=== PATIENT | female | born 1970 | race African-American/Black ===

== ENCOUNTER 2017-12-07 16:13 | Emergency (ER) | payer SELFPAY, OTHER ==
--- NOTE | 2017-12-07 16:58 | RAD ---
CHEST 2 VIEWS: Date: 12/07/17 HISTORY: Cough. COMPARISON: 08/11/16. FINDINGS: Cardiac silhouette and pulmonary vasculature are unremarkable. Mediastinum is midline. There is no co nfluent air space consolidation, pneumothorax, or pleural fluid apparent. IMPRESSION: No active cardiopulmonary abnormalities are demonstrated. POS: [facility]
== END 2017-12-07 18:59 | disposition home or self-care (01) ==
LOC: ERS 16:13
DX: J20.9 Acute bronchitis, unspecified (principal); G89.29 Other chronic pain; I10 Essential (primary) hypertension; E66.9 Obesity, unspecified; G47.30 Sleep apnea, unspecified; F20.9 Schizophrenia, unspecified; F32.9 Major depressive disorder, single episode, unspecified; F43.10 Post-traumatic stress disorder, unspecified; F17.210 Nicotine dependence, cigarettes, uncomplicated; G43.909 Migraine, unspecified, not intractable, without status migrainosus
CPT/HCPCS: 71046

== ENCOUNTER 2018-05-24 14:06 | Emergency (ER) | payer OTHER, SELFPAY ==
[2018-05-24 14:59] LABS: Bilirubin Negative (Negative); Blood, Urine Negative (Negative); Clarity CLEAR (Clear); Glucose, Urine (Dipstick) Negative (Negative); Leukocyte Negative (Negative); Nitrite Negative (Negative); Protein, Urine (Dipstick) Negative (Neg-Trace); Specific Gravity, Urine 1.029 (1.002-1.036); pH, Urine 5.5 (5.0-9.0)
[2018-05-24 16:35] LABS: Pregnancy Test - Urine (BHCG) Negative (Negative); Pregu Control Background? CLEAR/WHITE (CLR/WHITE); Pregu Control Bar Appear? YES (CONTROL BAR); Specific Gravity 1.029 (1.002-1.036)
--- NOTE | 2018-05-24 17:08 | RAD ---
LUMBAR SPINE THREE VIEWS: HISTORY: Lower back pain. COMPARISON: Lumbar spine MRI from 2016. FINDINGS: There is no acute fracture or malalignment. There is grade 1 L3/L4 anterolisthesis, approximately 5 mm. There is mild narrowing at the L3-L4 disk space. There is advanced disk arthropathy at this lev el. Small phleboliths in the pelvis. IMPRESSION: Advanced degenerative facet changes at L3-L4 with subsequent grade 1 anterolisthesis. POS: [facility]
--- NOTE | 2018-05-24 17:09 | RAD ---
LEFT WRIST THREE VIEWS: HISTORY: Pain. COMPARISON: None. FINDINGS: No fracture. No malalignment. There are advanced degenerative changes of the thumb carpometacarpal joint with some dorsal subluxati on and some chronic ossification along the ligaments. IMPRESSION: 1. No acute fracture or malalignment. 2. Advanced degenerative changes of the thumb. POS: [facility]
[2018-05-24] MEDS ORDERED: Ketorolac Tromethamine 30 MG/ML VIAL ONE (18:13)
[2018-05-24 19:10] LABS: #Basophils 0.1 thou/uL (0.0-0.2); #Eosinphils 0.3 thou/uL (0.0-0.7); #Monocytes 0.7 thou/uL (0.11-0.59); #Neutrophils 6.8 thou/uL (1.40-6.50); %Basophils 0.8 % (0.0-1.0); %Eosinophils 3.1 % (0.0-10.0); %Lymphocytes 27.7 % (21.0-51.0); %Monocytes 6.2 % (0.0-10.0); %Neutrophils 62.2 % (42.0-75.0); Hemoglobin 13.1 g/dL (12.0-16.0); Mean Corpuscular HGB CONC 33.7 g/dL (32.0-36.0); Mean Platelet Volume 7.8 fL (7.4-10.4); Platelet Count 248 thou/uL (130-400); RBC Distribution Width 13.6 % (11.5-14.5); Red Blood Cell (RBC) Count 4.37 mill/uL (4.20-5.40); White Blood Cell (WBC) Count 10.9 thou/uL (4.8-10.8)
[2018-05-24 19:40] LABS: ALT (SGPT) 11 U/L (8-55); AST (SGOT) 17 U/L (5-34); Albumin 4.2 g/dL (3.5-5.0); Alkaline Phosphatase 96 U/L (40-150); Anion Gap 13 mmol/L (10-20); BUN (Urea Nitrogen) 12 mg/dL (7.0-18.7); Bilirubin, Total 0.7 mg/dL (0.2-1.2); CRP (Inflammatory) Less than 0.50 mg/dL (= or < 0.5); Calc. Creatinine Clearance 0 mL/min (70-130); Calcium 9.8 mg/dL (7.8-10.44); Carbon Dioxide 26 mmol/L (22-29); Chloride 107 mmol/L (98-107); Estimated GFR-MDRD Greater than 90; Globulin 3.1 g/dL (2.4-3.5); Glucose 121 mg/dL (70-105); Potassium 4.3 mmol/L (3.5-5.1); Protein, Total 7.3 g/dL (6.0-8.3); Sodium 142 mmol/L (136-145)
== END 2018-05-24 20:50 | disposition home or self-care (01) ==
LOC: ERS 14:06
DX: S63.502A Unspecified sprain of left wrist, initial encounter (principal); M54.5 Low back pain; I10 Essential (primary) hypertension; E66.9 Obesity, unspecified; J45.909 Unspecified asthma, uncomplicated; G47.30 Sleep apnea, unspecified; G43.909 Migraine, unspecified, not intractable, without status migrainosus; F32.9 Major depressive disorder, single episode, unspecified; F43.10 Post-traumatic stress disorder, unspecified; F17.210 Nicotine dependence, cigarettes, uncomplicated; X58.XXXA Exposure to other specified factors, initial encounter
CPT/HCPCS: 36415; 36416; 72100; 80053; 81003; 81025; 85025; 85652; 86140; 96372; J1885

== ENCOUNTER 2018-06-16 23:14 | Inpatient (IN) | payer SELFPAY ==
[2018-06-17 00:23] LABS: #Eosinphils 0.1 thou/uL (0.0-0.7); #Lymphocytes 1.4 thou/uL (1.20-3.40); #Monocytes 0.6 thou/uL (0.11-0.59); #Neutrophils 8.7 thou/uL (1.40-6.50); %Basophils 0.3 % (0.0-1.0); %Eosinophils 0.7 % (0.0-10.0); %Lymphocytes 13.3 % (21.0-51.0); %Monocytes 5.6 % (0.0-10.0); Hemoglobin 13.2 g/dL (12.0-16.0); Mean Corpuscular HGB CONC 32.6 g/dL (32.0-36.0); Mean Corpuscular Volume 89.1 fL (78.0-98.0); Mean Platelet Volume 7.9 fL (7.4-10.4); Platelet Count 270 thou/uL (130-400); RBC Distribution Width 13.4 % (11.5-14.5); Red Blood Cell (RBC) Count 4.55 mill/uL (4.20-5.40); White Blood Cell (WBC) Count 10.8 thou/uL (4.8-10.8)
[2018-06-17 00:36] LABS: Bilirubin Negative (Negative); Blood, Urine Negative (Negative); Clarity CLEAR (Clear); Glucose, Urine (Dipstick) Negative (Negative); Leukocyte Negative (Negative); Nitrite Negative (Negative); Protein, Urine (Dipstick) Negative (Neg-Trace); Specific Gravity, Urine 1.024 (1.002-1.036); pH, Urine 7.5 (5.0-9.0)
[2018-06-17 00:43] LABS: ALT (SGPT) 185 U/L (8-55); AST (SGOT) 384 U/L (5-34); Albumin 4.1 g/dL (3.5-5.0); Alkaline Phosphatase 103 U/L (40-150); Anion Gap 13 mmol/L (10-20); BUN (Urea Nitrogen) 16 mg/dL (7.0-18.7); Bilirubin, Total 1.8 mg/dL (0.2-1.2); CK (CPK) 85 U/L (29-168); Calc. Creatinine Clearance 0 mL/min (70-130); Calcium 9.5 mg/dL (7.8-10.44); Carbon Dioxide 27 mmol/L (22-29); Chloride 103 mmol/L (98-107); Estimated GFR-MDRD 89; Globulin 3.1 g/dL (2.4-3.5); Glucose 122 mg/dL (70-105); Lipase 20 U/L (8-78); Potassium 3.7 mmol/L (3.5-5.1); Protein, Total 7.2 g/dL (6.0-8.3); Sodium 139 mmol/L (136-145)
[2018-06-17] MEDS ORDERED: Ondansetron ODT 4 MG TAB SL PRN (04:24)
[2018-06-17 05:00] VITALS: BMI 49.8
[2018-06-17] MEDS: Sodium Chloride 0.9% 1,000 ML IV SCH ×4 (06:17→22:04)
[2018-06-17] MEDS: Ondansetron HCl/PF 4 MG/2 ML Vial IVP PRN ×2 (06:18→15:51)
--- NOTE | 2018-06-17 07:00 | ULT ---
RIGHT UPPER QUADRANT ULTRASOUND: Date: 06/16/18 HISTORY: Abdominal pain. Nausea and vomiting. TECHNIQUE: Multiple longitudinal and transverse images of the right upper quadrant of the abdomen obtained using a multihertz curvilinear transducer. Real-time and color flow images obtained. FINDINGS: Images demonstrate some hepatomegaly, with the liver measuring 19.0 cm in the mid clavicular line. The gallbladder is unremarkable. No evidence of gallstones seen. Gallbladder wall is of normal thickn ess, measuring 2.0 mm. The common bile duct is of normal size, measuring 5.4 mm. No evidence of intrahepatic biliary dilatat ion is seen. The visualized portions of the pancreas are unremarkable. Right kidney is unremarkable, pole to pole measurement measures 11.9 cm. No evidence of hydronephrosi s seen. IMPRESSION: Unremarkable right upper quadrant ultrasound. POS: [facility]
--- NOTE | 2018-06-17 08:46 | CT ---
PRELIMINARY REPORT/[facility]/EMERGENCY AFTER HOURS PROCEDURE: EXAM: CT Abdomen and Pelvis With Intravenous Contrast CLINICAL HISTORY: 48 years old, female; Pain; Abdominal pain; Flank; Right upper quadrant (ruq); Patient HX: 48f presen ts with ruq pain x 2 days. Patient reports pain sometimes can be reproduced, but can not distinguish if it is starting in her back and radiating forward. Reports she has had similar pain in the past. Denies fever and chills. Does reports nausea. TECHNIQUE: Axial computed tomography images of the abdomen and pelvis with intravenous contrast. Coronal reforma tted images were created and reviewed. COMPARISON: No relevant prior studies available. FINDINGS: Lung bases: Unremarkable. No mass. No consolidation. ABDOMEN: Liver: Unremarkable. No mass. Gallbladder and bile ducts: Slight dilatation of the common bile duct measuring up to 8 mm. No calcif ied stones. No intrahepatic ductal dilation. Pancreas: Unremarkable. No mass. No ductal dilation. Spleen: No splenomegaly. Adrenals: Unremarkable. No mass. Kidneys and ureters: Unremarkable. No solid mass. No hydronephrosis. Stomach and bowel: Unremarkable. No obstruction. No mucosal thickening. PELVIS: Appendix: No findings to suggest acute appendicitis. Bladder: Unremarkable. No mass. Reproductive: Unremarkable as visualized. ABDOMEN and PELVIS: Intraperitoneal space: Unremarkable. No free air. No significant fluid collection. Bones/joints: No acute fracture. No dislocation. Soft tissues: Unremarkable. Vasculature: Unremarkable. No abdominal aortic aneurysm. Lymph nodes: Unremarkable. No enlarged lymph nodes. IMPRESSION: Slight dilatation of the common bile duct, otherwise unremarkable exam Thank you for allowing us to participate in the care of your patient. Dictated and Authenticated by: Scott Hines MD 06/17/2018 1:53 AM Central Time ([place] & [place]) FINAL REPORT CT ABDOMEN AND PELVIS WITH CONTRAST: FINDINGS/IMPRESSION: Report is in agreement with the above-provided preliminary interpretation. There is distention of the gallbladder and extrahepatic biliary ductal system. This could be further assessed with gallbladder ultrasound as well as biliary laboratory values and clinical assessment. POS: [facility]
[2018-06-17] MEDS: Morphine 4 MG/ML VIAL SLOW IVP PRN ×2 (09:36→14:00)
[2018-06-17] MEDS ORDERED: ISOVUE-370 76%-LOCM 1 ML ONE (11:08)
--- NOTE | 2018-06-17 11:54 | HP ---
CHIEF COMPLAINT: Abdominal pain. HISTORY OF PRESENT ILLNESS: History is provided by the patient who has had some pain medications. She can describe she has some chronic low back pain. She believes that she was having some exacerbation of that pain the day before yesterday and yesterday became more severe. She also had some abdominal pain primarily in the epigastric area associated with some nausea. She had no vomiting. She reports that it was initially intermittent, but it is now constant. Reports that it is a 10/10 now. Still feels that in her lower back. Also, feels it in her upper back and shoulder blade area. States she has had this type of pain before, but at this time it feels sharper and she states that it feels like her spine is pulling apart. Describes it as a "cutting pain." She has had no change in her bowel habits. She does believe that she had some fevers and chills yesterday. No change in symptoms, better or worse, with BM, position or activity. REVIEW OF SYSTEMS: Notable for some numbness and tingling in her feet. Occasionally, she wakes up at night, feeling like she is choking and a little short of breath, but believes this is related to sleep apnea. PAST MEDICAL HISTORY: 1. Obstructive sleep apnea. The patient reports she was diagnosed with this and then subsequently lost her job and her insurance and never pursued. She is not currently on any treatment. 2. "Enlarged heart." 3. Hypertension. 4. Sciatica. 5. Chronic pain related to her lower back. PAST SURGICAL HISTORY: Surgery on the right knee meniscus, tonsillectomy/ adenoidectomy, . SOCIAL HISTORY: The patient smokes half a pack of cigarettes per day. She occasionally drinks alcohol. She is single. Denies drug use. Her surrogate decision maker would be her sister, Narcisa. She is a [employer]. FAMILY HISTORY: Father's history is unknown. Her mother had breast cancer. MEDICATIONS: Lisinopril causes cough. Nitroglycerin causes headache. CURRENT MEDICATIONS: Ibuprofen 800 p.o. t.i.d., hydrochlorothiazide 25 mg p.o. daily, Norvasc 10 mg p.o. daily. PHYSICAL EXAMINATION: VITAL SIGNS: Temperature is 98.4, pulse 74, respirations 18, O2 sat 93%, blood pressure 155/89. GENERAL APPEARANCE: Morbidly obese age appropriate female who does not appear to be in any distress or significant pain. She is conversant. HEENT: PERRL. No OP lesions. NECK: Supple and symmetric. HEART: Regular rate and rhythm without murmurs, gallops or rubs. LUNGS: Clear to auscultation bilaterally with good chest wall expansion and air exchange. ABDOMEN: Soft, nondistended. There is tenderness to palpation in the epigastrium and somewhat in the right upper quadrant, also mildly in the left lower quadrant, but fairly minimal and modestly in the right lower quadrants. She has some guarding in the epigastric area, but no rebound. SKIN: Warm and dry without edema. LABORATORY DATA AND IMAGING DATA: White count 10.8, hemoglobin 13.2, platelets 270. Sodium 139, potassium 3.7, chloride 103, BUN 16, creatinine 0.8, glucose 122, calcium 9.5, AST 384, ALT is 185, albumin 4.1, lipase 20. Urinalysis negative. CT abdomen and pelvis demonstrates slight dilatation of the gallbladder and extrahepatic biliary duct system. Abdominal ultrasound is unremarkable. IMPRESSION AND PLAN: 1. Abdominal pain with elevated liver enzymes and total bilirubin. Etiology is unclear. Her ultrasound was negative, but CT scan was concerning for possible dilatation of the gallbladder and biliary duct. We will repeat her labs now to see if there is any significant change. GI consult pending. The patient remains n.p.o. Given the fact that she has been taking some anti- inflammatory medications and her pain seems to be as much, if not more epigastric then right upper quadrant could be more of a gastritis picture and then cholecystitis would not explain the elevated liver enzymes. This is also complicated by the fact the patient has some chronic pain syndrome related to her back. The patient certainly has the classic scenario for some cholecystitis. 2. Hypertension. Continue amlodipine and hydrochlorothiazide. MTDD
[2018-06-17 13:04] LABS: ALT (SGPT) 498 U/L (8-55); AST (SGOT) 646 U/L (5-34); Alkaline Phosphatase 122 U/L (40-150); Anion Gap 13 mmol/L (10-20); BUN (Urea Nitrogen) 12 mg/dL (7.0-18.7); Bilirubin, Total 1.7 mg/dL (0.2-1.2); Calc. Creatinine Clearance 201 mL/min (70-130); Carbon Dioxide 23 mmol/L (22-29); Chloride 108 mmol/L (98-107); Estimated GFR-MDRD Greater than 90; Globulin 2.8 g/dL (2.4-3.5); Glucose 94 mg/dL (70-105); Protein, Total 6.8 g/dL (6.0-8.3); Sodium 140 mmol/L (136-145)
--- NOTE | 2018-06-17 15:18 | CON ---
DATE OF CONSULTATION: 06/17/2018 GI CONSULTATION NOTE CHIEF COMPLAINT: Abnormal liver tests. HISTORY OF PRESENT ILLNESS: Ms. Hancock is a 48-year-old woman who presented to the emergency room las t night with back pain. ss She complains of a sharp pain that started across her lower back yesterday afternoon. She had nausea with it. She has had some associated left upper quadrant epigastric disc omfort as well; however, this is only mild at this point. She has had no vomiting, but has been naus eated. She has had normal bowel movements for the last couple of days. No blood in the stool soft. She has soft, easy to pass stools. Her weight has been stable. No fever with this. She is noted t o have significantly elevated liver tests during her evaluation and GI was consulted to evaluate that . Her ultrasound of the abdomen showed no stones or biliary dilation. CT scan of the abdomen and pe lvis was unremarkable and the common bile duct measured at 8 mm with that exam. She did not notice a ny change in her pain with eating yesterday. She has had some chronic low back pain for which she ta kes ibuprofen daily. A week ago she saw her primary care doctor and restarted taking her blood press ure medicines again. She started hydrochlorothiazide and amlodipine. She takes ibuprofen 800 mg onc e or twice a day over the last week. Prior to that, she was on [id number] ibuprofen for years. She has had no use of Tylenol. No drug use recently. PAST MEDICAL HISTORY: Obstructive sleep apnea, hypertension, chronic low back pain, obesity. PAST SURGICAL HISTORY: Knee surgery, tonsillectomy, . FAMILY HISTORY: Negative for GI malignancy or liver disease. SOCIAL HISTORY: She smokes half a pack a day of cigarettes. She denies any alcohol use. She did us e cocaine and marijuana in the more distant past. She has never used IV drugs. ALLERGIES: She had a cough with LISINOPRIL. MEDICATIONS: Currently ibuprofen 800 mg up to 3 times a day, hydrochlorothiazide 25 mg daily, amlodi pine 10 mg daily prior to admission. REVIEW OF SYSTEMS: Negative x10 systems reviewed except as stated in the history of present illness. PHYSICAL EXAMINATION: VITAL SIGNS: Temperature 98.1, pulse 68, blood pressure 185/77 ranging to 138/78. GENERAL: She is in no acute distress. She is alert and oriented x3. HEENT: Eyes have no scleral icterus. Oropharynx is clear, without lesions. NECK: No cervical or supraclavicular lymphadenopathy. LUNGS: Clear to auscultation bilaterally. HEART: Regular rate and rhythm without murmur. ABDOMEN: Soft, minimal tenderness in the right and left upper right. Her right upper quadrant is no ntender. Her rest of her abdomen is nontender. Bowel sounds are active. EXTREMITIES: No lower extremity edema. NEUROLOGIC: Cranial nerves are grossly intact. No asterixis. LABORATORY DATA: White blood cell count 10.8, hemoglobin 13.2, platelets 207. The creatinine 0.72, bilirubin is 1.7, down from 1.8 last night, AST is 646 up from 348 last night, ALT 498 from 185. Las t night, alkaline phosphatase is 122 last night. Her alkaline phosphatase was 103, albumin is 4.0, l ipase 20. IMPRESSION: Abnormal liver function test with primarily hepatocellular injury pattern. There are no signs of chronic liver disease by imaging or blood work. She has had no alcohol use and no Tylenol use. She has been using ibuprofen 800 mg up to 3 times per day which could be a potential source for acute liver injury. She has no gallstones in the gallbladder and her bile duct was 5 mm by ultrasou nd and an [address] There is no indication at this point that she has choledocholithiasis. Her al kaline phosphatase is normal and she is nontender to palpation in the right upper quadrant. At this point, we will need to rule out viral hepatitis, rule out autoimmune hepatitis, I will also check lab s for other causes of liver disease. She did recently restart blood pressure medications and ischemic hepatopathy. I think as a creatinine would have to be considered; however, I think this is unlikel y given that she has a normal creatinine and if she had a hypotensive episode enough to cause ischemi c hepatopathy. I would expect a bump in her creatinine as well. RECOMMENDATIONS: 1. Check viral hepatitis screen. 2. Check alpha fetoprotein and iron saturation and smooth muscle antibody, mitochondrial antibody. 3. We will continue to follow the trend of her liver tests and check an INR.
[2018-06-17 15:47] LABS: INR-International Normal Ratio 0.9; Prothrombin Time 12.7 SEC (12.0-14.7)
[2018-06-17 16:01] LABS: Iron 122 ug/dL (50-170); Iron Binding Capacity, Total 270 mcg/dL (265-497)
[2018-06-17 16:20] LABS: Hep B Surf Ag Non-Reactive S/CO (NonReactive); Hep C IgG Ab Non-Reactive (NonReactive); Hep C Index 0.07 S/CO (0-0.79)
[2018-06-17 16:22] LABS: HBCM Index 0.19 S/CO (0-0.79); Hep A IgM AB Non-Reactive (NonReactive); Hep A IgM S/CO 0.08 S/CO (0-0.79); Hepatitis B Core IGM Abs Non-Reactive (NonReactive)
[2018-06-17 17:59] LABS: HBSAB Concentration 14988.44 mIU/mL; Hep B Surf AB Reactive (NonReactive)
[2018-06-17 18:00] LABS: Hep B Core Total Ab Reactive (NonReactive); Hep B Core Total Index 7.27 S/CO (0-0.79)
[2018-06-17 18:05] LABS: Ferritin 250.88 ng/mL (10-291)
[2018-06-18] MEDS: Sodium Chloride 0.9% 1,000 ML IV SCH ×3 (00:03→15:26)
[2018-06-18] MEDS: HYDROcodone/Acetaminophen 5/325 mg Tablet PO PRN ×2 (00:03→22:12)
[2018-06-18] MEDS: Ondansetron HCl/PF 4 MG/2 ML Vial IVP PRN ×2 (08:10→14:12)
[2018-06-18 14:53] LABS: ANA Symphony (Qualitative) Negative (Negative); ANA Symphony (Quantitative) Less than 0.07 Ratio (<0.7 Negative); EliA Vaculitis New Method **** NEW METHOD ****; Mitochondrial Ab Less than 0.5 U/mL (<4 Negative); dsDNA IgG Antibody 3.6 IU/mL (<10 Negative)
--- NOTE | 2018-06-18 15:05 | PDOC.PN ---
- Subjective Encounter Start Date: 06/18/18 Encounter Start Time: 12:15 Subjective: c/o lower back pain -: no trouble passing urine or cough -: no fever - Objective Resuscitation Status: Resuscitation Status FULL:Full Resuscitation MAR Reviewed: Yes Vital Signs & Weight: Vital Signs (12 hours) Temp Pulse Resp BP Pulse Ox 06/18/18 07:26 98.6 F 72 18 160/98 H 98 Weight Weight 299 lb 13.259 oz I&O: 06/17/18 06/18/18 06/19/18 06:59 06:59 06:59 Intake Total 1849 1939 Balance 1849 1939 Result Diagrams: 06/17/18 00:12 06/17/18 12:28 Phys Exam - Physical Examination HEENT: PERRLA, moist MMs Neck: no JVD, supple Respiratory: no wheezing, no rales Cardiovascular: RRR, no significant murmur Gastrointestinal: soft, non-tender, no distention, positive bowel sounds Musculoskeletal: no edema, pulses present severe lumbosacral paraspinal area tenderness, no mass felt Neurological: non-focal, moves all 4 limbs Psychiatric: normal affect, A&O x 3 Dx/Plan (1) Elevated LFTs Code(s): R94.5 - ABNORMAL RESULTS OF LIVER FUNCTION STUDIES Status: Acute (2) Asthma Code(s): J45.909 - UNSPECIFIED ASTHMA, UNCOMPLICATED Status: Chronic Qualifiers: Asthma severity: unspecified severity (3) Hypertension Code(s): I10 - ESSENTIAL (PRIMARY) HYPERTENSION Status: Chronic Qualifiers: Hypertension type: essential hypertension Qualified Code(s): I10 - Essential (primary) hypertension (4) Obesity, morbid, BMI 40.0-49.9 Code(s): E66.01 - MORBID (SEVERE) OBESITY DUE TO EXCESS CALORIES Status: Chronic (5) Obstructive sleep apnea Code(s): G47.33 - OBSTRUCTIVE SLEEP APNEA (ADULT) (PEDIATRIC) Status: Chronic (6) Tobacco abuse Code(s): Z72.0 - TOBACCO USE Status: Chronic (7) Back pain Code(s): M54.9 - DORSALGIA, UNSPECIFIED Status: Acute Qualifiers: Back pain location: low back pain Chronicity: unspecified - Plan MRI of thoracic and lumbar spine to r/o discitis/epidural abscess, no fever -: hepatic panel today and in am -: change status to inpt, morphine, lidocaine tts -: afp, smooth muscle and antimito ab levels pending -: lfts are trending up, ?related to inf * . Review of Systems - Medications/Allergies Allergies/Adverse Reactions: Allergies Allergy/AdvReac Type Severity Reaction Status Date / Time lisinopril AdvReac Intermediate Verified 08/11/16 06:24 Medications: Current Medications Hydrocodone Bitart/Acetaminophen ([place] 5/325) 1 tab PO Q4H PRN PRN Reason: Moderate Pain (4-6) Last Admin: 06/18/18 00:03 Dose: 1 tab Sodium Chloride (Normal Saline 0.9%) 1,000 mls @ 125 mls/hr IV .Q8H MARY Stop: 06/19/18 14:16 Last Admin: 06/18/18 08:05 Dose: 1,000 mls Lidocaine (Lidoderm 5% Patch) 2 patch TD DAILY MARY Morphine Sulfate (Morphine) 2 mg SLOW IVP Q2H PRN PRN Reason: Mild-Moderate Pain (1-5) Stop: 06/19/18 14:16 Last Admin: 06/17/18 06:18 Dose: 2 mg Morphine Sulfate (Morphine) 4 mg SLOW IVP Q2H PRN PRN Reason: Moderate to Severe Pain (6-10) Stop: 06/19/18 14:16 Last Admin: 06/17/18 14:00 Dose: 4 mg Morphine Sulfate (Morphine) 2 mg SLOW IVP Q4H PRN PRN Reason: Chest Pain/BP Elevations Ondansetron HCl (Zofran) 4 mg IVP Q6H PRN PRN Reason: Nausea/Vomiting Stop: 06/19/18 14:16 Last Admin: 06/18/18 14:12 Dose: 4 mg Ondansetron HCl (Zofran Odt) 4 mg SL Q6H PRN PRN Reason: Nausea/Vomiting Stop: 06/19/18 14:16 Sodium Chloride (Flush - Normal Saline) 10 ml IVF Q12HR MARY Last Admin: 06/18/18 08:13 Dose: Not Given Sodium Chloride (Flush - Normal Saline) 10 ml IVF PRN PRN PRN Reason: Saline Flush
[2018-06-18] MEDS: Lidocaine 5% Patch TD SCH (16:12)
[2018-06-18 16:47] LABS: #Basophils 0.1 thou/uL (0.0-0.2); #Eosinphils 0.4 thou/uL (0.0-0.7); #Lymphocytes 2.7 thou/uL (1.20-3.40); #Monocytes 0.8 thou/uL (0.11-0.59); #Neutrophils 5.3 thou/uL (1.40-6.50); %Basophils 1.1 % (0.0-1.0); %Eosinophils 4.2 % (0.0-10.0); %Lymphocytes 29.3 % (21.0-51.0); %Monocytes 8.1 % (0.0-10.0); %Neutrophils 57.4 % (42.0-75.0); Hemoglobin 12.9 g/dL (12.0-16.0); Mean Corpuscular HGB CONC 31.5 g/dL (32.0-36.0); Mean Corpuscular Hemoglobin 28.6 pg (27.0-31.0); Mean Corpuscular Volume 90.8 fL (78.0-98.0); Mean Platelet Volume 8.1 fL (7.4-10.4); Platelet Count 265 thou/uL (130-400); RBC Distribution Width 13.5 % (11.5-14.5); Red Blood Cell (RBC) Count 4.52 mill/uL (4.20-5.40); White Blood Cell (WBC) Count 9.3 thou/uL (4.8-10.8)
--- NOTE | 2018-06-18 16:51 | PRG ---
DATE OF SERVICE: 06/18/2018 GASTROENTEROLOGY PROGRESS NOTE SUBJECTIVE: Mr. Hancock has some abdominal discomfort. She does have chronic low back pain in the mid lower back. She is tolerating her diet well. OBJECTIVE: VITAL SIGNS: Temperature 98.6, pulse 72, blood pressure 160/98. GENERAL: She is in no acute distress, awake and alert and oriented x3. LUNGS: Clear to auscultation bilaterally. HEART: Regular rate and rhythm without murmur. ABDOMEN: Soft, nontender, nondistended. Bowel sounds are present. EXTREMITIES: No lower extremity edema. LABORATORY DATA: Her iron saturation is not elevated. Her hepatitis B surface antibody and core tot al antibody are positive indicating a past infection. She does not have chronic active infection. H epatitis A and hepatitis B were negative. Additional labs looking for other causes of liver disease are pending. IMPRESSION: Abnormal liver function tests with primarily hepatocellular injury pattern. The cause o f this is not known at this point. She had been taking nonsteroidal anti-inflammatory drugs. She re cently started new medications and ischemic hepatopathy is considered as a possibility, however, not thought to be likely since her renal function is normal. Her INR is normal. No obvious signs of chr onic liver disease otherwise. RECOMMENDATIONS: 1. Recheck liver tests. Follow trend. 2. I am awaiting additional blood work that has already been ordered.
[2018-06-18 17:11] LABS: ALT (SGPT) 288 U/L (8-55); AST (SGOT) 160 U/L (5-34); Albumin 3.9 g/dL (3.5-5.0); Alkaline Phosphatase 122 U/L (40-150); Anion Gap 12 mmol/L (10-20); BUN (Urea Nitrogen) 11 mg/dL (7.0-18.7); Bilirubin, Total 0.7 mg/dL (0.2-1.2); Calc. Creatinine Clearance 195 mL/min (70-130); Calcium 9.2 mg/dL (7.8-10.44); Carbon Dioxide 22 mmol/L (22-29); Chloride 107 mmol/L (98-107); Estimated GFR-MDRD Greater than 90; Globulin 2.8 g/dL (2.4-3.5); Glucose 94 mg/dL (70-105); Potassium 4.4 mmol/L (3.5-5.1); Protein, Total 6.7 g/dL (6.0-8.3); Sodium 137 mmol/L (136-145)
[2018-06-19] MEDS: Lidocaine Patch Removal 1 EACH TOP SCH (04:25)
[2018-06-19] MEDS: Sodium Chloride 0.9% 1,000 ML IV SCH ×3 (04:25→23:42)
[2018-06-19 04:57] LABS: ALT (SGPT) 230 U/L (8-55); AST (SGOT) 104 U/L (5-34); Albumin 3.9 g/dL (3.5-5.0); Alkaline Phosphatase 121 U/L (40-150); Anion Gap 14 mmol/L (10-20); BUN (Urea Nitrogen) 12 mg/dL (7.0-18.7); Bilirubin, Total 0.4 mg/dL (0.2-1.2); Calc. Creatinine Clearance 198 mL/min (70-130); Calcium 9.6 mg/dL (7.8-10.44); Carbon Dioxide 24 mmol/L (22-29); Chloride 104 mmol/L (98-107); Estimated GFR-MDRD Greater than 90; Globulin 2.8 g/dL (2.4-3.5); Glucose 100 mg/dL (70-105); Potassium 4.1 mmol/L (3.5-5.1); Protein, Total 6.7 g/dL (6.0-8.3); Sodium 138 mmol/L (136-145)
--- NOTE | 2018-06-19 12:11 | PRG ---
DATE OF SERVICE: 06/19/2018 GASTROENTEROLOGY PROGRESS NOTE SUBJECTIVE: Ms. Hancock has no acute complaints today. No abdominal pain and she is tolerating a kimi d diet. OBJECTIVE: VITAL SIGNS: Temperature 98.4, pulse 72, blood pressure 154/92. GENERAL: She is in no acute distress. She is alert and oriented x3. HEENT: Eyes have no scleral icterus. LUNGS: Clear to auscultation bilaterally. HEART: Regular rate and rhythm. ABDOMEN: Minimal upper abdominal tenderness, without guarding. Bowel sounds are present. EXTREMITIES: No lower extremity edema. LABORATORY DATA: Bilirubin 0.4, AST 104, ALT 230, alkaline phosphatase 121. Mitochondrial antibody was negative. Smooth muscle antibody and alpha 1 antitrypsin levels are pending. IMPRESSION: 1. Abnormal liver function test. 2. Hepatocellular injury pattern. Cause of this is not determined. Abnormal liver tests could have been related to NSAID use; however, I would not think this would be likely. No other source was chace ntified so far. Mild ischemic hepatopathy could be considered. Again, this does not seem likely. V iral hepatitis panel is negative for chronic or acute infection. She has past exposure to hepatitis B infection, but not a chronic infection. Smooth muscle antibody and alpha 1 antitrypsin level and a lpha fetoprotein are pending. She does not have other obvious medications or home medication list th at might have caused this. Again, ultrasound of the abdomen showed a normal common bile duct size an d no stones. RECOMMENDATIONS: 1. Follow up in GI Clinic in 2 weeks to recheck her liver tests. Her transaminases have trended richard n significantly and we will follow the trend of her longer period and await the labs that have alread y been sent. Diet and exercise have been discussed as well. 2. Follow up in GI Clinic in a couple of weeks to recheck her liver tests. Screening colonoscopy co uld be considered at that point and this was discussed with her as well. 3. She is awaiting further evaluation of her back with MRI in the meantime. I will sign off for now . Please call if GI can be of assistance.
--- NOTE | 2018-06-19 14:10 | PDOC.PN ---
- Subjective Encounter Start Date: 06/19/18 Encounter Start Time: 07:30 Subjective: back pain is better this am -: no abd pain -: is eating well - Objective Resuscitation Status: Resuscitation Status FULL:Full Resuscitation MAR Reviewed: Yes Vital Signs & Weight: Vital Signs (12 hours) Temp Pulse Resp BP Pulse Ox 06/19/18 08:00 94 L 06/19/18 07:19 98.4 F 72 18 154/92 H 94 L Weight Weight 299 lb 13.259 oz I&O: 06/18/18 06/19/18 06/20/18 06:59 06:59 06:59 Intake Total 1850 2740 Balance 1850 2740 Result Diagrams: 06/18/18 16:36 06/19/18 03:44 Phys Exam - Physical Examination HEENT: PERRLA, moist MMs Neck: no JVD, supple Respiratory: no wheezing, no rales Cardiovascular: RRR, no significant murmur Gastrointestinal: soft, non-tender, positive bowel sounds Musculoskeletal: no edema, pulses present Neurological: non-focal, moves all 4 limbs Psychiatric: normal affect, A&O x 3 Dx/Plan (1) Elevated LFTs Code(s): R94.5 - ABNORMAL RESULTS OF LIVER FUNCTION STUDIES Status: Acute (2) Asthma Code(s): J45.909 - UNSPECIFIED ASTHMA, UNCOMPLICATED Status: Chronic Qualifiers: Asthma severity: unspecified severity (3) Hypertension Code(s): I10 - ESSENTIAL (PRIMARY) HYPERTENSION Status: Chronic Qualifiers: Hypertension type: essential hypertension Qualified Code(s): I10 - Essential (primary) hypertension (4) Obesity, morbid, BMI 40.0-49.9 Code(s): E66.01 - MORBID (SEVERE) OBESITY DUE TO EXCESS CALORIES Status: Chronic (5) Obstructive sleep apnea Code(s): G47.33 - OBSTRUCTIVE SLEEP APNEA (ADULT) (PEDIATRIC) Status: Chronic (6) Tobacco abuse Code(s): Z72.0 - TOBACCO USE Status: Chronic (7) Back pain Code(s): M54.9 - DORSALGIA, UNSPECIFIED Status: Acute Qualifiers: Back pain location: low back pain Chronicity: unspecified - Plan MRI for spine today to r/o discitis/epidural abscess -: lft's are trending down -: to ambulate as tolerated -: lidocaine tts is helping her -: dc plan home if MRI is normal * . Review of Systems - Medications/Allergies Allergies/Adverse Reactions: Allergies Allergy/AdvReac Type Severity Reaction Status Date / Time lisinopril AdvReac Intermediate Verified 08/11/16 06:24 Medications: Current Medications Hydrocodone Bitart/Acetaminophen ([place] 5/325) 1 tab PO Q4H PRN PRN Reason: Moderate Pain (4-6) Last Admin: 06/18/18 22:12 Dose: 1 tab Lidocaine (Lidoderm 5% Patch) 2 patch TD 1600 MARY Last Admin: 06/18/18 16:12 Dose: 2 patch Miscellaneous Medication (Lidocaine Patch Removal) 2 each TOP 0400 MARY Last Admin: 06/19/18 04:25 Dose: 2 each Morphine Sulfate (Morphine) 2 mg SLOW IVP Q2H PRN PRN Reason: Mild-Moderate Pain (1-5) Stop: 06/19/18 14:16 Last Admin: 06/17/18 06:18 Dose: 2 mg Morphine Sulfate (Morphine) 4 mg SLOW IVP Q2H PRN PRN Reason: Moderate to Severe Pain (6-10) Stop: 06/19/18 14:16 Last Admin: 06/17/18 14:00 Dose: 4 mg Morphine Sulfate (Morphine) 2 mg SLOW IVP Q4H PRN PRN Reason: Chest Pain/BP Elevations Ondansetron HCl (Zofran) 4 mg IVP Q6H PRN PRN Reason: Nausea/Vomiting Stop: 06/19/18 14:16 Last Admin: 06/18/18 14:12 Dose: 4 mg Ondansetron HCl (Zofran Odt) 4 mg SL Q6H PRN PRN Reason: Nausea/Vomiting Stop: 06/19/18 14:16 Sodium Chloride (Flush - Normal Saline) 10 ml IVF Q12HR MARY Last Admin: 06/19/18 09:49 Dose: Not Given Sodium Chloride (Flush - Normal Saline) 10 ml IVF PRN PRN PRN Reason: Saline Flush
[2018-06-19] MEDS ORDERED: Ondansetron HCl/PF 4 MG/2 ML Vial IVP PRN (15:44)
[2018-06-19] MEDS ORDERED: Ondansetron ODT 4 MG TAB SL PRN (15:44)
[2018-06-19] MEDS: Lidocaine 5% Patch TD SCH (15:58)
--- NOTE | 2018-06-19 16:12 | MRI ---
MRI OF LUMBAR SPINE PERFORMED WITH AND WITHOUT CONTRAST ENHANCEMENT: 06/19/18 HISTORY: Patient complaining of upper and lower back pain. Evaluation for osteomyelitis. The vertebral bodies maintain normal height. There is disc narrowing at L3-4 with disc desiccation changes. There is also disc desiccation changes at the L5-S1 level. No significant disc narrowing seen at this level. No sig nificant periaortic adenopathy and the visualized portions of the kidneys appear unremarkable. No ramon row edema changes seen and no evidence of any abnormal contrast enhancement to suggest osteomyelitis or discitis. T12-L1: Unremarkable. L1-2: Unremarkable. L2-3: Degenerative facet and ligamentous hypertrophic changes without significant canal or foraminal stenosis. L3-4: Marked degenerative facet changes are present at this level. There is fluid within the facet carol ints. There is a moderate degree of canal narrowing. No significant foraminal stenosis. L4-5: Degenerative facet changes without canal or foraminal narrowing. L5-S1: No signs of any significant disc bulge, canal or foraminal stenosis. There is a slight disc bu lge and what may be a tiny left paracentral disc protrusion. It does not appear to impress on the the dipti sac or nerve roots. IMPRESSION: 1. No signs of osteomyelitis or discitis. 2. Mild to moderate stenosis at L3-4. Other findings as noted above. POS: MAURO
--- NOTE | 2018-06-19 16:15 | MRI ---
MRI OF THE THORACIC SPINE PERFORMED WITH AND WITHOUT CONTRAST ENHANCEMENT: 06/19/18 HISTORY: Patient with upper and lower back pain. Evaluation for osteomyelitis. COMPARISON: 08/10/16 study. The vertebral bodies maintain normal height. There is some mild degenerative changes of the spine. Th ere is no abnormal marrow signal change within the vertebral bodies. There are disc desiccation curiel es at some of the disc levels but no signs of any discitis. On postcontrast images, I do not see any abnormal enhancement. The cord has normal signal. No epidural process is seen. No paravertebral mass. No signs of any signi ficant canal or foraminal stenosis. IMPRESSION: No evidence for discitis or osteomyelitis of the thoracic spine. POS: MAURO
[2018-06-19] MEDS: HYDROcodone/Acetaminophen 5/325 mg Tablet PO PRN (16:17)
--- NOTE | 2018-06-19 18:24 | EKG ---
Test Reason : Blood Pressure : / mmHG Vent. Rate : 079 BPM Atrial Rate : 079 BPM P-R Int : 184 ms QRS Dur : 100 ms QT Int : 410 ms P-R-T Axes : 063 027 063 degrees QTc Int : 470 ms Normal sinus rhythm Possible Left atrial enlargement Borderline ECG Right atrial enlargement Confirmed by MEAGAN MORALES, EMMA Bhatti ([id number]), editor map EDWINA PLATT ([id number]) on 06/19/2018 6:24:04 PM Referred By: Confirmed By:EMMA RHODES MD
[2018-06-20] MEDS: Lidocaine Patch Removal 1 EACH TOP SCH (03:11)
[2018-06-20 07:55] VITALS: TEMP 97.9
[2018-06-20 13:07] VITALS: BP 167/107
--- NOTE | 2018-06-20 14:43 | PDOC.PN ---
- Subjective Encounter Start Date: 06/20/18 Encounter Start Time: 07:50 Subjective: back pain is better -: no abd pain - Objective Resuscitation Status: Resuscitation Status FULL:Full Resuscitation MAR Reviewed: Yes Vital Signs & Weight: Vital Signs (12 hours) Temp Pulse Resp BP Pulse Ox 06/20/18 13:07 167/107 H 06/20/18 08:00 94 L 06/20/18 07:51 97.9 F 76 16 181/83 H 94 L Weight Weight 299 lb 13.259 oz I&O: 06/19/18 06/20/18 06/21/18 06:59 06:59 06:59 Intake Total 2740 1500 180 Balance 2740 1500 180 Result Diagrams: 06/18/18 16:36 06/19/18 03:44 Phys Exam - Physical Examination HEENT: PERRLA, moist MMs Neck: no JVD, supple Respiratory: no wheezing, no rales Cardiovascular: RRR, no significant murmur Gastrointestinal: soft, non-tender, positive bowel sounds Musculoskeletal: no edema, pulses present Neurological: non-focal, moves all 4 limbs Psychiatric: normal affect, A&O x 3 Dx/Plan (1) Elevated LFTs Code(s): R94.5 - ABNORMAL RESULTS OF LIVER FUNCTION STUDIES Status: Acute Comment: resolving (2) Asthma Code(s): J45.909 - UNSPECIFIED ASTHMA, UNCOMPLICATED Status: Chronic Qualifiers: Asthma severity: unspecified severity (3) Hypertension Code(s): I10 - ESSENTIAL (PRIMARY) HYPERTENSION Status: Chronic Qualifiers: Hypertension type: essential hypertension Qualified Code(s): I10 - Essential (primary) hypertension (4) Obesity, morbid, BMI 40.0-49.9 Code(s): E66.01 - MORBID (SEVERE) OBESITY DUE TO EXCESS CALORIES Status: Chronic (5) Obstructive sleep apnea Code(s): G47.33 - OBSTRUCTIVE SLEEP APNEA (ADULT) (PEDIATRIC) Status: Chronic (6) Tobacco abuse Code(s): Z72.0 - TOBACCO USE Status: Chronic (7) Back pain Code(s): M54.9 - DORSALGIA, UNSPECIFIED Status: Acute Qualifiers: Back pain location: low back pain Chronicity: unspecified - Plan hemostable -: MRI lumbar and thoracic spine were reviewed -: dc pt home * .
--- NOTE | 2018-06-21 15:28 | DIS ---
DATE OF ADMISSION: 06/16/2018. DATE OF DISCHARGE: 06/20/2018 DISCHARGE DISPOSITION: To home. PRIMARY DISCHARGE DIAGNOSES: Elevated LFTs, likely due to medications, is resolving; chronic back pa in with workup being negative for acute pathology; history of asthma; hypertension; morbid obesity; o bstructive sleep apnea; and tobacco abuse. PROCEDURES DONE DURING HOSPITALIZATION: Patient has had right upper quadrant ultrasound done, which was unremarkable. CT of the abdomen and pelvis done showed slight dilatation of the common bile duct , otherwise was unremarkable. Thoracic spine MRI done showed no evidence of diskitis or osteomyeliti s. Lumbar spine MRI showed no signs of osteomyelitis or diskitis. There is [id number] stenosi s at the L3-4. Blood cultures x2, no growth. White count of 9, H&H 12 and 41, platelet count 265. AST levels were 646 on the 20th with discharge number of 104. ALT was 498 on the 20th with discharge number of 230. Total bilirubin was 1.8 on admission with discharge number of 0.4, alkaline phosphat ase was 121. Alpha 1 antitrypsin levels were within normal limits. Lipase is 20. NETTA screen negati ve. Antimitochondrial antibody was negative. Smooth muscle antibody titer was 7, which was negative . Mitochondrial M2 antibody levels were less than 0.5, again was negative. INPATIENT CONSULTS: Dr. Jaime Cortez for Gastroenterology. DISCHARGE MEDICATIONS: Norvasc 10 mg daily, hydrochlorothiazide 25 mg daily, lidocaine transdermal p atch 5% daily. ALLERGIES: LISINOPRIL. DISCHARGE PLAN: Patient to follow up with primary care physician in 1 week. BRIEF COURSE DURING HOSPITALIZATION: Patient initially came in with complaints of abdominal discomfo rt and chronic back pain. Her initial liver function enzymes were elevated. The patient was also ta maldonado Motrin and Aleve at higher dosing for the back pain and knee pain. The patient has had a CT of the abdomen and right upper quadrant ultrasound. She has had trending of her liver enzymes, which ar e all coming down to its baseline. In view of severe back pain, thoracic and lumbar spine MRIs were obtained to rule out diskitis and osteomyelitis, both of which were negative. No evidence of epidura l abscess was seen as well. There was no fever and blood cultures were negative as well. She is hem odynamically stable, ambulating and eating well prior to discharge. The patient needs to follow up w [facility] her primary care physician in 1 week. Please see a [id number] documentation on [facility] for th e day of discharge.
[2018-06-21 16:13] LABS: Alpha-1-Antitrypsin 118 mg/dL (90-200)
== END 2018-06-20 12:54 | disposition home or self-care (01) | DRG 442 ==
LOC: ERS 23:14 → OBSVTOIN 06-17 04:09 → T4-B 06-17 04:09
PROVIDERS: ADMIT Internal Medicine; ATTEND Internal Medicine
DX: R94.5 Abnormal results of liver function studies (principal); Z68.42 Body mass index [BMI] 45.0-49.9, adult; J45.909 Unspecified asthma, uncomplicated; I10 Essential (primary) hypertension; E66.01 Morbid (severe) obesity due to excess calories; G47.33 Obstructive sleep apnea (adult) (pediatric); M54.9 Dorsalgia, unspecified
CPT/HCPCS: 36415; 72157; 72158; 74177; 76705; 80053; 80074; 81003; 82103; 82104; 82550; 82728; 83516; 83540; 83550; 83690; 85025; 85610; 86038; 86225; 86704; 86706; 87040; 87086; 93005; 99406; A4216; J2270; J2405

== ENCOUNTER 2019-02-09 11:10 | Emergency (ER) | payer SELFPAY ==
--- NOTE | 2019-02-09 11:55 | RAD ---
LEFT KNEE 4 VIEWS: Date: 02/09/19 HISTORY: Fall. Left knee pain. FINDINGS/IMPRESSION: Degenerative changes are present. No fracture or dislocation is identified. There is fullness in the suprapatellar pouch suggestive of a joint effusion. POS: TPC
--- NOTE | 2019-02-09 11:56 | RAD ---
PA AND LATERAL VIEWS CHEST: Date: 02/09/19 HISTORY: Cough. FINDINGS: Comparison made with exam of 12/07/17. The heart size is borderline. The lungs are expanded without focal areas of consolidation, pneumothor aces, regina pulmonary edema, or pleural effusions. There are degenerative changes in the spine. IMPRESSION: No acute process. POS: TPC
[2019-02-09] MEDS ORDERED: Ketorolac Tromethamine 30 MG/ML VIAL ONE (13:21)
[2019-02-09 13:27] LABS: Bilirubin Negative (Negative); Blood, Urine Negative (Negative); Clarity CLEAR (Clear); Glucose, Urine (Dipstick) Negative (Negative); Leukocyte Negative (Negative); Nitrite Negative (Negative); Protein, Urine (Dipstick) Negative (Neg-Trace); Specific Gravity, Urine 1.021 (1.002-1.036)
== END 2019-02-09 14:36 | disposition home or self-care (01) ==
LOC: ERS 11:10
DX: M25.462 Effusion, left knee (principal); R05 Cough; R09.81 Nasal congestion; I10 Essential (primary) hypertension; E66.9 Obesity, unspecified; J45.909 Unspecified asthma, uncomplicated; G47.30 Sleep apnea, unspecified; G43.909 Migraine, unspecified, not intractable, without status migrainosus; F31.9 Bipolar disorder, unspecified; F20.9 Schizophrenia, unspecified; F43.10 Post-traumatic stress disorder, unspecified; F17.210 Nicotine dependence, cigarettes, uncomplicated
CPT/HCPCS: 71046; 81003; 96372; J1885

== ENCOUNTER 2019-07-06 16:22 | Observation (INO) | payer BC ==
[2019-07-06 17:22] LABS: #Basophils 0.1 thou/uL (0.0-0.2); #Eosinphils 0.3 thou/uL (0.0-0.7); #Monocytes 0.7 thou/uL (0.11-0.59); #Neutrophils 7.6 thou/uL (1.40-6.50); %Basophils 1.2 % (0.0-1.0); %Eosinophils 2.9 % (0.0-10.0); %Lymphocytes 25.8 % (21.0-51.0); %Monocytes 6.1 % (0.0-10.0); Hemoglobin 12.8 g/dL (12.0-16.0); Mean Corpuscular Hemoglobin 29.5 pg (27.0-31.0); Mean Corpuscular Volume 89.2 fL (78.0-98.0); Mean Platelet Volume 7.7 fL (7.4-10.4); Platelet Count 278 thou/uL (130-400); RBC Distribution Width 13.8 % (11.5-14.5); Red Blood Cell (RBC) Count 4.33 mill/uL (4.20-5.40); White Blood Cell (WBC) Count 11.8 thou/uL (4.8-10.8)
--- NOTE | 2019-07-06 17:36 | RAD ---
PORTABLE CHEST: 07/06/19 HISTORY: Heart palpitations. COMPARISON: 08/11/16 study. Heart size appears borderline. Aorta is mildly tortuous. The lungs are clear of infiltrates. IMPRESSION: Borderline heart size. POS: TPC
[2019-07-06 17:48] LABS: ALT (SGPT) 14 U/L (8-55); AST (SGOT) 15 U/L (5-34); Alkaline Phosphatase 95 U/L (40-110); Anion Gap 14 mmol/L (10-20); BUN (Urea Nitrogen) 11 mg/dL (9.8-20.1); Bilirubin, Total 0.4 mg/dL (0.2-1.2); Calc. Creatinine Clearance 0 mL/min (70-130); Calcium 9.2 mg/dL (7.8-10.44); Carbon Dioxide 24 mmol/L (22-29); Chloride 103 mmol/L (98-107); Estimated GFR-MDRD 79; Glucose 178 mg/dL (70-105); Potassium 4.2 mmol/L (3.5-5.1); Sodium 137 mmol/L (136-145)
[2019-07-06] MEDS ORDERED: Aspirin 325 MG TAB ONE (18:30)
[2019-07-06] MEDS ORDERED: Ketorolac Tromethamine 30 MG/ML VIAL ONE (18:30)
[2019-07-06 21:14] LABS: Troponin I 0.015 ng/mL (< 0.028)
[2019-07-06] MEDS ORDERED: hydrALAZINE 20 MG/ML VIAL ONE (21:36)
[2019-07-06] MEDS ORDERED: Acetaminophen 325 MG TAB PO PRN (22:35)
[2019-07-06] MEDS ORDERED: Ondansetron PF 4 MG/2 ML Vial IVP PRN (22:35)
[2019-07-06] MEDS ORDERED: Ondansetron ODT 4 MG TAB SL PRN (22:35)
[2019-07-06 22:48] VITALS: BMI 48.2
[2019-07-06 23:53] LABS: Troponin I 0.021 ng/mL (< 0.028)
[2019-07-07 04:32] LABS: #Eosinphils 0.3 thou/uL (0.0-0.7); #Lymphocytes 3.4 thou/uL (1.20-3.40); #Monocytes 0.9 thou/uL (0.11-0.59); #Neutrophils 6.6 thou/uL (1.40-6.50); %Basophils 0.3 % (0.0-1.0); %Eosinophils 2.7 % (0.0-10.0); %Lymphocytes 30.5 % (21.0-51.0); %Monocytes 7.6 % (0.0-10.0); %Neutrophils 58.9 % (42.0-75.0); Hemoglobin 11.9 g/dL (12.0-16.0); Mean Corpuscular HGB CONC 33.2 g/dL (32.0-36.0); Mean Corpuscular Hemoglobin 29.5 pg (27.0-31.0); Mean Corpuscular Volume 88.9 fL (78.0-98.0); Mean Platelet Volume 7.7 fL (7.4-10.4); Platelet Count 263 thou/uL (130-400); RBC Distribution Width 13.8 % (11.5-14.5); Red Blood Cell (RBC) Count 4.04 mill/uL (4.20-5.40); White Blood Cell (WBC) Count 11.3 thou/uL (4.8-10.8)
[2019-07-07 04:54] LABS: Anion Gap 12 mmol/L (10-20); BUN (Urea Nitrogen) 12 mg/dL (9.8-20.1); Calc. Creatinine Clearance 187 mL/min (70-130); Calcium 8.9 mg/dL (7.8-10.44); Carbon Dioxide 22 mmol/L (22-29); Chloride 105 mmol/L (98-107); Estimated GFR-MDRD Greater than 90; Glucose 131 mg/dL (70-105); Potassium 3.8 mmol/L (3.5-5.1); Sodium 135 mmol/L (136-145)
--- NOTE | 2019-07-07 07:35 | HP ---
PRIMARY CARE DOCTOR: Estevan Marrero MD CHIEF COMPLAINT: Chest pain. TIME OF EVALUATION: 09:15 p.m. CODE STATUS: Full code. HISTORY OF PRESENT ILLNESS: A 49-year-old female patient, who is morbidly obese, came to the hospital after having chest pain that was acute, /10, with no clear triggers, no alleviating factors, has been present for the past few days on and off. The patient also has low back pain, this is chronic, but also has worsened in the past few days. Symptoms started insidiously, and it has been gradually getting worse. REVIEW OF SYSTEMS: CONSTITUTIONAL: No fever, chills, or generalized weakness. RESPIRATORY: No cough, sputum production, or shortness of breath. CARDIOVASCULAR: The patient has chest pain. No palpitation. GASTROINTESTINAL: No nausea. No vomiting, diarrhea, or abdominal pain. [employer]: No dizziness, headache, or feeling lightheaded. GENITOURINARY: No burning on urination. MUSCULOSKELETAL: The patient has lower back pain. All other systems were reviewed and negative except for the findings mentioned above. PAST MEDICAL HISTORY: Positive for chronic back pain, sciatica, hypertension, chronic leg pain, enlarged heart, and sleep apnea. PAST SURGICAL HISTORY: The patient has a x1, orthopedic surgery of the right knee, and tonsillectomy. PSYCHIATRIC HISTORY: Bipolar disorder includes depression, schizophrenia, and posttraumatic stress disorder. SOCIAL HISTORY: The patient abuse cocaine, marijuana, smokes cigarettes half a pack per day. FAMILY HISTORY: Noncontributory to current presentation. KNOWN ALLERGIES: To lisinopril. REPORTED MEDICATIONS: 1. Hydrochlorothiazide. 2. Carvedilol. 3. Amlodipine. The patient is noncompliant with medication. PHYSICAL EXAMINATION: VITAL SIGNS: On presentation, blood pressure 136/67, heart rate 95, respiratory rate was 18, pain was 8/10, oxygen saturation was 98% on room air, with my examination blood pressure was higher into the range of 180s, improve after hydralazine has been given IV. GENERAL: The patient is alert, oriented, in no acute distress. HEENT: Eyes, normal conjunctivae. Moist oral mucosa. Anicteric. No JVD. RESPIRATORY: Bilateral air entry. No rales. No wheezes. Symmetric expansion. CARDIOVASCULAR: Normal rate, regular rhythm. No murmurs. No gallop. No edema. ABDOMEN: Soft. Normal bowel sounds. MUSCULOSKELETAL: The patient has lower back pain. SKIN: Warm and intact. No pallor. No rash. No redness. Capillary refill seems to be intact. NEURO: No evidence of any new focal weakness. Cranial nerve seems to be intact. DIAGNOSTIC DATA: EKG was reviewed. The patient had normal sinus rhythm with prolonged QT, ventricular rate 82, NJ 174, QRS 88, and QT-corrected 469. Chest x-ray was reviewed. The patient has borderline heart size. LABORATORY DATA: Reviewed. The patient has a white count of 11.8, hemoglobin 12.8, MCV 89.2, and platelet count 278. Chemistry was normal except for glucose it was 178, I reviewed was 131. ASSESSMENT AND PLAN: The patient will be placed in the hospital with following medical problems. 1. Uncontrolled hypertension. The patient has blood pressure , improved with hydralazine. We will reconcile home medications. She was non-compliant with her home medications, and we will adjust p.r.n. medications for optimal control. 2. Chest pain, rule out acute coronary syndrome. We will follow troponin. We will monitor on Tele, and the patient with stress test in the morning, if positive might need to consult Cardiology. 3. Morbid obesity, advised to lose weight. 4. History of asthma, this is chronic. . 5. Hyperglycemia, may be related to acute physical distress versus glucose intolerance. We will monitor. No need for any acute intervention at this point. The patient would benefit from change in lifestyles. Job ID: [id number]
[2019-07-07] MEDS ORDERED: Aspirin 325 MG TAB PO SCH (08:00)
[2019-07-07] MEDS ORDERED: FLU VACC QS2019-20(6MOS UP)/PF 60 MCG/0.5 ML SYRINGE IM ONE (09:00)
[2019-07-07] MEDS: Amlodipine 10 MG TAB PO SCH (13:09)
[2019-07-07] MEDS: Losartan 25 MG TAB PO SCH ×2 (13:10→20:31)
[2019-07-07] MEDS: Hydrochlorothiazide 25 MG TAB PO SCH (13:10)
[2019-07-07] MEDS: Carvedilol 25 MG TAB PO SCH ×2 (13:10→20:31)
[2019-07-07] MEDS: Enoxaparin Sodium 40 MG/0.4 ML SYRINGE SC SCH (13:10)
--- NOTE | 2019-07-07 13:54 | NM ---
Exam: Nuclear medicine cardiac stress with EF and wall motion HISTORY: Chest pain TECHNIQUE: Stress only imaging is performed FINDINGS: Homogeneous distribution of the radiotracer in the left ventricle End-diastolic volume is 152 mL End systolic volume is 79 mL Cardiac gating: There are slightly decreased wall motion and thickening. 48% ejection fraction IMPRESSION: 1. Homogeneous distribution of radiotracer. 2. Mild hypokinesis. 48% ejection fraction
[2019-07-08] MEDS ORDERED: Aspirin 81 mg Enteric Coated Tablet PO SCH (09:00)
[2019-07-08] MEDS: Amlodipine 10 MG TAB PO SCH (09:07)
[2019-07-08] MEDS: Carvedilol 25 MG TAB PO SCH (09:07)
[2019-07-08] MEDS: Losartan 25 MG TAB PO SCH (09:07)
[2019-07-08] MEDS: Hydrochlorothiazide 25 MG TAB PO SCH (09:07)
[2019-07-08] MEDS: Enoxaparin Sodium 40 MG/0.4 ML SYRINGE SC SCH (09:08)
--- NOTE | 2019-07-08 09:30 | PRG ---
DATE OF SERVICE: 07/07/2019 SUBJECTIVE: A 49-year-old female with hypertension and chronic low back pain, presented to the emergency room with chest discomfort. Serial troponins were negative. The patient denies any chest discomfort at this time. No fever, chills, cough, shortness of breath, wheezing reported. REVIEW OF SYSTEMS: As discussed above. No new focal deficit. OBJECTIVE: VITAL SIGNS: Temperature 98.3, respiration of 20, pulse 83, blood pressure 148/68 with O2 saturation 95% on room air. GENERAL: A 49-year-old female, in no apparent distress. LUNGS: Clear to auscultation bilaterally. No wheezing, rales, or rhonchi. HEART: S1 and S2 present. Regular rate and rhythm. No rubs or gallops. ABDOMEN: Soft, nontender. Bowel sounds present. EXTREMITIES: No calf tenderness. SKIN: Warm and dry. PSYCHIATRY: Alert, awake, oriented x3. NEUROLOGIC: Grossly nonfocal. CURRENT MEDICATIONS: Reviewed. The patient is on; 1. Amlodipine. 2. Aspirin. 3. Carvedilol. 4. Hydrochlorothiazide. 5. Losartan. DIAGNOSTIC DATA: Telemetry monitoring by my review showed sinus rhythm. Chest x-ray by my review was negative. Cardiolite stress test in 2014 was negative for reversible ischemia, ejection fraction was 59%. IMPRESSION: 1. Chest pain. 2. New-onset diabetes mellitus type 2. Hemoglobin A1c was 7.0. 3. Morbid obesity with a BMI of 48.3. 4. Hypertension. 5. Chronic low back pain. 6. History of obstructive sleep apnea, currently not on CPAP. PLAN: The patient will be monitored on the telemetry unit. Cardiolite stress test will be obtained. We will continue beta blockers, hydrochlorothiazide, and losartan. Continue aspirin. Lifestyle modification was emphasized. We will consult dietitian for education on dietary modification for diabetes. Job ID: [id number]
[2019-07-08 16:00] VITALS: BP 139/84; TEMP 98.6
--- NOTE | 2019-07-09 00:08 | DIS ---
DATE OF ADMISSION: 07/06/2019 DATE OF DISCHARGE: 07/08/2019 DISCHARGE DISPOSITION: Home. FOLLOWUP: Follow up with [facility] in 1 week. DISCHARGE MEDICATION: 1. Gabapentin 100 mg 3 times a day. 2. All other home medications were left unchanged. Patient was seen on the day of discharge. Denies any new complaints. BRIEF HOSPITAL COURSE: Patient is a 49-year-old female with hypertension and chronic low back pain, presented to the emergency room with chest discomfort. Please refer to the history and physical for further details. The patient was admitted to the telemetry unit with a diagnosis of chest discomfort, rule out acute coronary syndrome. Serial troponins were negative. She underwent a Cardiolite stress test that was negative for reversible ischemia. However, her ejection fraction on the stress test was 48% with slightly decreased wall motion and thickening. For this reason, she underwent an echocardiogram that showed ejection fraction of 55% to 60% with mild concentric left ventricular hypertrophy and mild mitral regurgitation. She appears stable for discharge. FINAL DIAGNOSES: 1. Chest discomfort, acute coronary syndrome ruled out. 2. New diagnosis of diabetes mellitus, type 2. Hemoglobin A1c was 7.0. Lifestyle modification was emphasized. 3. Morbid obesity with a BMI of 48.3. 4. Hypertension with hypertensive heart disease. 5. Chronic low back pain. 6. History of obstructive sleep apnea, not on CPAP. 7. Mild leukocytosis, unlikely to be infectious. 8. Mild hyponatremia. PLAN: Plan of care was discussed with the patient in detail. She stated understanding. Job ID: [id number]
--- NOTE | 2019-07-10 02:34 | EKG ---
Test Reason : Blood Pressure : / mmHG Vent. Rate : 084 BPM Atrial Rate : 084 BPM P-R Int : 174 ms QRS Dur : 092 ms QT Int : 392 ms P-R-T Axes : 062 -02 077 degrees QTc Int : 463 ms Normal sinus rhythm Possible Left atrial enlargement Left ventricular hypertrophy Abnormal ECG Confirmed by MEAGAN MORALES, EMMA Bhatti ([id number]), brands editor THUY MCGARRY ([id number]) on 07/10/2019 2:34:05 AM Referred By: Confirmed By:EMMA RHODES MD
== END 2019-07-08 18:31 | disposition home or self-care (01) ==
LOC: ERS 16:22 → ERHOLD 18:00 → 2SE 22:22
PROVIDERS: ADMIT Internal Medicine; ATTEND Internal Medicine
DX: R07.89 Other chest pain (principal); E11.65 Type 2 diabetes mellitus with hyperglycemia; I11.9 Hypertensive heart disease without heart failure; G89.29 Other chronic pain; M54.40 Lumbago with sciatica, unspecified side; G47.33 Obstructive sleep apnea (adult) (pediatric); D72.829 Elevated white blood cell count, unspecified; E87.1 Hypo-osmolality and hyponatremia; F31.9 Bipolar disorder, unspecified; F20.9 Schizophrenia, unspecified; F43.10 Post-traumatic stress disorder, unspecified; F12.11 Cannabis abuse, in remission; F14.11 Cocaine abuse, in remission; F17.210 Nicotine dependence, cigarettes, uncomplicated; E66.01 Morbid (severe) obesity due to excess calories; Z68.42 Body mass index [BMI] 45.0-49.9, adult; Z79.899 Other long term (current) drug therapy; Z88.8 Allergy status to other drugs, medicaments and biological substances
CPT/HCPCS: 36415; 71045; 78452; 80048; 80053; 83036; 83880; 84484; 85025; 93005; 93017; 93306; 96372; 96374; A9500; G0378; J0153; J0360; J1650; J1885

== ENCOUNTER 2021-01-21 12:47 | Emergency (ER) | payer BC ==
[2021-01-21] MEDS ORDERED: Ibuprofen 200 MG TAB ONE (13:42)
[2021-01-21] MEDS ORDERED: Acetaminophen 500 MG TAB ONE (13:42)
[2021-01-21 13:54] LABS: #Basophils 0.1 thou/uL (0.0-0.2); #Eosinphils 0.3 thou/uL (0.0-0.7); #Monocytes 0.7 thou/uL (0.11-0.59); %Basophils 0.7 % (0.0-1.0); %Eosinophils 2.3 % (0.0-10.0); %Lymphocytes 30.5 % (21.0-51.0); %Monocytes 5.7 % (0.0-10.0); %Neutrophils 60.8 % (42.0-75.0); Hemoglobin 12.6 g/dL (12.0-16.0); Mean Corpuscular HGB CONC 32.3 g/dL (32.0-36.0); Mean Corpuscular Hemoglobin 29.3 pg (27.0-31.0); Mean Corpuscular Volume 90.7 fL (78.0-98.0); Mean Platelet Volume 7.8 fL (7.4-10.4); Platelet Count 307 thou/uL (130-400); RBC Distribution Width 12.9 % (11.5-14.5); Red Blood Cell (RBC) Count 4.29 mill/uL (4.20-5.40); White Blood Cell (WBC) Count 13.1 thou/uL (4.8-10.8)
[2021-01-21 14:33] LABS: ALT (SGPT) 21 U/L (8-55); AST (SGOT) 27 U/L (5-34); Albumin 4.1 g/dL (3.5-5.0); Alkaline Phosphatase 97 U/L (40-110); Anion Gap 18 mmol/L (10-20); BUN (Urea Nitrogen) 12 mg/dL (9.8-20.1); Bilirubin, Total 0.6 mg/dL (0.2-1.2); Calc. Creatinine Clearance 0 mL/min (70-130); Calcium 10.1 mg/dL (7.8-10.44); Carbon Dioxide 21 mmol/L (22-29); Chloride 104 mmol/L (98-107); Globulin 3.2 g/dL (2.4-3.5); Glucose 204 mg/dL (70-105); Potassium 4.3 mmol/L (3.5-5.1); Protein, Total 7.3 g/dL (6.0-8.3); Sodium 139 mmol/L (136-145)
[2021-01-21] MEDS ORDERED: Ondansetron ODT 4 MG TAB ONE (15:40)
== END 2021-01-21 15:50 | disposition home or self-care (01) ==
LOC: ERS 12:47
DX: R51.9 Headache, unspecified (principal); R11.0 Nausea; I10 Essential (primary) hypertension; E66.9 Obesity, unspecified; J45.909 Unspecified asthma, uncomplicated; G47.30 Sleep apnea, unspecified; M19.90 Unspecified osteoarthritis, unspecified site; F17.210 Nicotine dependence, cigarettes, uncomplicated; Z79.899 Other long term (current) drug therapy
CPT/HCPCS: 36415; 71045; 80053; 84484; 85025; 93005; Q0162

== ENCOUNTER 2021-07-17 15:10 | Emergency (ER) | payer BC ==
[2021-07-17] MEDS ORDERED: Ketorolac Tromethamine 30 MG/ML VIAL ONE (17:22)
== END 2021-07-17 17:55 | disposition home or self-care (01) ==
LOC: ERS 15:10
DX: M17.0 Bilateral primary osteoarthritis of knee (principal); I10 Essential (primary) hypertension; E66.9 Obesity, unspecified; J45.909 Unspecified asthma, uncomplicated; G47.30 Sleep apnea, unspecified; G43.909 Migraine, unspecified, not intractable, without status migrainosus; M19.90 Unspecified osteoarthritis, unspecified site; E11.9 Type 2 diabetes mellitus without complications; F17.210 Nicotine dependence, cigarettes, uncomplicated; Z79.899 Other long term (current) drug therapy
CPT/HCPCS: 96372; 99283; J1885

== ENCOUNTER 2021-08-28 12:10 | Emergency (ER) | payer BC, OTHER ==
[2021-08-28 16:18] LABS: SARS-CoV-2 NAA Rapid Test Not Detected (NotDetected)
== END 2021-08-28 15:30 | disposition home or self-care (01) ==
LOC: ERS 12:10
DX: B34.9 Viral infection, unspecified (principal); Z20.822 Contact with and (suspected) exposure to COVID-19; I10 Essential (primary) hypertension; G43.909 Migraine, unspecified, not intractable, without status migrainosus; J45.909 Unspecified asthma, uncomplicated; E11.9 Type 2 diabetes mellitus without complications; M19.90 Unspecified osteoarthritis, unspecified site; E66.9 Obesity, unspecified; F17.210 Nicotine dependence, cigarettes, uncomplicated; Z79.899 Other long term (current) drug therapy
CPT/HCPCS: 0240U; 36416; 71045; 99283

== ENCOUNTER 2023-02-03 14:45 | Outpatient (CLI) | payer OTHER, MEDICAID | END 2023-02-03 14:46 | disposition home or self-care (01) | LOC: RAD 14:45 | PROVIDERS: ATTEND Internal Medicine | DX: R06.00 Dyspnea, unspecified (principal) | CPT/HCPCS: 71046 ==

== ENCOUNTER 2023-07-05 17:00 | Outpatient (CLI) | payer OTHER | END 2023-07-05 17:01 | disposition home or self-care (01) | LOC: SLEEPLAB 17:00 | PROVIDERS: ATTEND Internal Medicine | DX: G47.33 Obstructive sleep apnea (adult) (pediatric) (principal); R06.83 Snoring; G47.10 Hypersomnia, unspecified; I10 Essential (primary) hypertension; E11.9 Type 2 diabetes mellitus without complications; J45.909 Unspecified asthma, uncomplicated; G47.00 Insomnia, unspecified | CPT/HCPCS: 95810 ==

== ENCOUNTER 2023-12-23 06:26 | Day surgery (SDC) | payer OTHER, MEDICAID ==
[2023-12-22 09:28] VITALS: BMI 48.4
[2023-12-23] MEDS ORDERED: Lidocaine 2% PF 5 ML VIAL ONE (08:51)
[2023-12-23] MEDS ORDERED: PROPOFOL 60 ML ONE (08:51)
[2023-12-23] MEDS ORDERED: Glycopyrrolate 0.2 MG/ML 5 ML SYRINGE ONE (08:57)
[2023-12-23] MEDS ORDERED: PROPOFOL 20 ML ONE ×2 (09:21→09:34)
== END 2023-12-23 10:25 | disposition home or self-care (01) ==
LOC: SDC 06:26
PROVIDERS: ATTEND Internal Medicine Gastroenterology
PROC: 0DB98ZX Excision of Duodenum, Via Natural or Artificial Opening Endoscopic, Diagnostic (ICD-10-PCS; principal; 2023-12-23)
PROC: 0DB58ZX Excision of Esophagus, Via Natural or Artificial Opening Endoscopic, Diagnostic (ICD-10-PCS; 2023-12-23)
PROC: 0D758ZZ Dilation of Esophagus, Via Natural or Artificial Opening Endoscopic (ICD-10-PCS; 2023-12-23)
PROC: 0DBE8ZX Excision of Large Intestine, Via Natural or Artificial Opening Endoscopic, Diagnostic (ICD-10-PCS; 2023-12-23)
DX: K21.00 Gastro-esophageal reflux disease with esophagitis, without bleeding (principal); K29.50 Unspecified chronic gastritis without bleeding; K31.89 Other diseases of stomach and duodenum; D72.820 Lymphocytosis (symptomatic); K44.9 Diaphragmatic hernia without obstruction or gangrene; K29.70 Gastritis, unspecified, without bleeding; E78.5 Hyperlipidemia, unspecified; I10 Essential (primary) hypertension; E66.9 Obesity, unspecified; G47.30 Sleep apnea, unspecified; Z79.899 Other long term (current) drug therapy; F17.210 Nicotine dependence, cigarettes, uncomplicated; Z68.42 Body mass index [BMI] 45.0-49.9, adult
CPT/HCPCS: 88305; J2001; J2704